=== PATIENT | female | born 1990 ===

== ENCOUNTER 2017-08-28 13:14 | Emergency (ER) | payer SELFPAY | END 2017-08-28 13:15 | disposition left against medical advice (07) | LOC: ED 13:14 | DX: Z53.21 Procedure and treatment not carried out due to patient leaving prior to being seen by health care provider (principal) ==

== ENCOUNTER 2018-01-21 15:57 | Outpatient (CLI) | payer BC, OTHER | END 2018-01-21 17:00 | disposition home or self-care (01) | LOC: TRG 15:57 | PROVIDERS: ATTEND Obstetrics & Gynecology | DX: O47.03 False labor before 37 completed weeks of gestation, third trimester (principal); Z3A.36 36 weeks gestation of pregnancy | CPT/HCPCS: 59025 ==